=== PATIENT | female | born 1990 | race Caucasian/White ===

== ENCOUNTER 2017-05-27 15:49 | Emergency (ER) | payer BC ==
--- NOTE | 2017-05-27 19:37 | UC ---
Complaint Female HPI - HPI Summary HPI Summary: FOUR DAYS OF URGENCY FREQUENCY; LAST TWO DAYS HAS HAD DULL LOW BACK PAIN. NO FEVERS. NO ABDOMINAL PAIN. NO BLOOD IN URINE. NO VAGINAL DISCHARGE. NO NEW SEXUAL PARTNERS. - History Of Current Complaint Chief Complaint: UCGU Stated Complaint: POSS UTI Time Seen by Provider: 05/27/17 18:41 Hx Obtained From: Patient Hx Last Menstrual Period: 06/03/17 Onset/Duration: Gradual Onset, Lasting Days, Worse Since - TWO DAYS Timing: Intermittent, Lasting Days Severity Initially: Mild Severity Currently: Moderate Character: Dull, Burning Aggravating Factor(s): Urination Associated Signs And Symptoms: Positive: Back Pain - DULL MILD LOW BACK PAIN. Negative: Fever, Vaginal Bleeding/Discharge, Vaginal Discharge, Nausea, Vomiting (# Of Episodes =) - Allergies/Home Medications Allergies/Adverse Reactions: Allergies Allergy/AdvReac Type Severity Reaction Status Date / Time Neomycin Allergy Rash Verified 05/27/17 15:52 PMH/Surg Hx/FS Hx/Imm Hx Previously Healthy: Yes Other History Of: Negative For: HIV, Hepatitis B, Hepatitis C, Anticoagulant Therapy - Surgical History Surgical History: Yes Surgery Procedure, Year, and Place: wisdom teeth extraction - Family History Known Family History: Positive: Cardiac Disease, Hypertension Negative: Renal Disease - Social History Occupation: Employed Full-time Lives: With Family Alcohol Use: Occasionally Alcohol Amount: 4 drinks Substance Use Type: None Smoking Status (MU): Never Smoked Tobacco - Immunization History Most Recent Influenza Vaccination: does not regurlary receive Most Recent Tetanus Shot: utd Review of Systems Constitutional: Negative Skin: Negative Eyes: Negative ENT: Negative Respiratory: Negative Cardiovascular: Negative Gastrointestinal: Negative Genitourinary: Dysuria, Frequency, Urgency Motor: Negative Neurovascular: Negative Musculoskeletal: Negative Neurological: Negative Psychological: Negative All Other Systems Reviewed And Are Negative: Yes Physical Exam Triage Information Reviewed: Yes Appearance: Well-Appearing, No Pain Distress, Well-Nourished Vital Signs: Initial Vital Signs Temp 98.9 F 05/27/17 15:50 Pulse 81 05/27/17 15:50 Resp 16 05/27/17 15:50 BP 117/84 05/27/17 15:50 Pulse Ox 99 05/27/17 15:50 Vital Signs Reviewed: Yes Eye Exam: Normal ENT Exam: Normal Dental Exam: Normal Neck exam: Normal Respiratory Exam: Normal Respiratory: Positive: Chest non-tender, Lungs clear, Normal breath sounds Cardiovascular Exam: Normal Cardiovascular: Positive: RRR, No Murmur, Pulses Normal Abdominal Exam: Normal Abdomen Description: Positive: Nontender, No Organomegaly, Soft Musculoskeletal Exam: Normal Neurological Exam: Normal Psychological Exam: Normal Skin Exam: Normal Complaint Female Dx - Differential Dx/Diagnosis Differential Diagnosis/HQI/PQRI: Urinary Tract Infection Provider Diagnoses: URINARY TRACT INFECTION Discharge - Discharge Plan Condition: Stable Disposition: HOME Prescriptions: Phenazopyridine TAB* [Pyridium 100 mg TAB*] 100 mg PO TID #15 tab Sulfamethox/Trimethoprim DS* [Bactrim DS 800/160 TAB*] 1 tab PO BID #10 tab Patient Education Materials: Urinary Tract Infection in Women (ED) Referrals: [facility]FERR[facility] [Outside] No Primary Care Phys,NOPCP [Primary Care Provider] - Additional Instructions: PRIMARY CARE: There are four major types of clinical preventive care: immunizations, screening , behavioral counseling (sometimes referred to as lifestyle changes), and chemoprevention. All four apply throughout the life span. It is important to establish and to have access to a Primary Care Physician, not only for follow- up regrding acute and chronic problems, but also for preventative care. PLEASE SEEK EVALUATION AT THE EMERGENCY DEPARTMENT IF YOU DEVELOP FEVERS, SEVERE ABDOMINAL PAIN, OR ANY NEW OR CONCERNING SYMPTOMS DEVELOP DURING THE COURSE OF TREATMENT FOR THIS ILLNESS
[2017-05-27 19:45] VITALS: BP 112/69
== END 2017-05-27 19:35 | disposition home or self-care (01) ==
LOC: UCEAST 15:49
DX: N39.0 Urinary tract infection, site not specified (principal)
CPT/HCPCS: 81003; 84702; 87077; 87086; 99212; G0463

== ENCOUNTER 2017-06-03 10:35 | Emergency (ER) | payer BC ==
[2017-06-03 10:42] VITALS: BP 122/77
--- NOTE | 2017-06-03 12:23 | UC ---
Skin Complaint HPI - HPI Summary HPI Summary: full body itching rash began 1 day after finishing Bactrim for a UTI (that has resolved) - History of Current Complaint Chief Complaint: UCAllergicReaction Time Seen by Provider: 06/03/17 12:15 Stated Complaint: RASH FEVER Hx Obtained From: Patient Hx Last Menstrual Period: 05/04/17 ?: No Onset/Duration: Sudden Onset, Lasting Days - 1, Still Present Timing: Constant Onset Severity: Moderate Current Severity: Moderate Location: Diffuse Character: Redness Aggravating: Nothing Alleviating: Nothing Associated Signs & Symptoms: Positive: Rash Related History: Recent change in medication - Allergy/Home Medications Allergies/Adverse Reactions: Allergies Allergy/AdvReac Type Severity Reaction Status Date / Time Neomycin Allergy Rash Verified 05/27/17 15:52 Sulfamethoxazole Allergy Rash Verified 06/03/17 10:37 w/Trimethoprim [From Bactrim] Review of Systems Constitutional: Negative Skin: Rash - full body masular red blanching rash Eyes: Negative ENT: Negative Respiratory: Negative Cardiovascular: Negative Gastrointestinal: Negative Genitourinary: Negative Motor: Negative Neurovascular: Negative Musculoskeletal: Negative Neurological: Negative Psychological: Negative All Other Systems Reviewed And Are Negative: Yes PMH/Surg Hx/FS Hx/Imm Hx Previously Healthy: Yes Other History Of: Negative For: HIV, Hepatitis B, Hepatitis C, Anticoagulant Therapy - Surgical History Surgical History: Yes Surgery Procedure, Year, and Place: wisdom teeth extraction - Family History Known Family History: Positive: Cardiac Disease, Hypertension Negative: Renal Disease - Social History Occupation: Employed Full-time Lives: With Family Alcohol Use: Occasionally Alcohol Amount: 4 drinks Substance Use Type: None Smoking Status (MU): Never Smoked Tobacco - Immunization History Most Recent Influenza Vaccination: does not regurlary receive Most Recent Tetanus Shot: utd Physical Exam Triage Information Reviewed: Yes Appearance: Well-Appearing, No Pain Distress, Well-Nourished Vital Signs: Initial Vital Signs Temp 98.6 F 06/03/17 10:39 Pulse 84 06/03/17 10:39 Resp 16 06/03/17 10:39 BP 122/77 06/03/17 10:39 Pulse Ox 99 06/03/17 10:39 Vital Signs Reviewed: Yes Eye Exam: Normal Eyes: Positive: Conjunctiva Clear ENT Exam: Normal ENT: Positive: Normal ENT inspection, Hearing grossly normal. Negative: Nasal congestion, Nasal drainage, Trismus, Muffled/hoarse voice Dental Exam: Normal Neck exam: Normal Neck: Positive: Supple, Nontender Respiratory Exam: Normal Respiratory: Positive: Chest non-tender, Lungs clear, No respiratory distress, No accessory muscle use Cardiovascular Exam: Normal Cardiovascular: Positive: RRR, No Murmur, Pulses Normal, Brisk Capillary Refill Musculoskeletal Exam: Normal Musculoskeletal: Positive: Strength Intact, ROM Intact, No Edema Neurological Exam: Normal Neurological: Positive: Alert, Muscle Tone Normal Psychological Exam: Normal Skin Exam: Normal Skin: Positive: rashes - diffuse mobiliform rash Course/Dx - Course Course Of Treatment: benadryl, prednisone, avoid all sulfa based medications follow with pcp prn - Differential Diagnoses - Skin Complaint Differential Diagnoses: Allergic Reaction, Anaphylaxis, Angioedema, Cellulitis - Diagnoses Provider Diagnoses: Allergic reaction to BActrim Discharge - Discharge Plan Condition: Stable Disposition: HOME Prescriptions: predniSONE TAB* [Deltasone TAB*] 50 mg PO DAILY #5 tab Patient Education Materials: Tick Bite (ED), Acute Rash (ED), Antibiotic Medication Allergy (ED) Referrals: [facility] [facility] [Outside] - 5 Days
== END 2017-06-03 12:36 | disposition home or self-care (01) ==
LOC: UCEAST 10:35
DX: L27.0 Generalized skin eruption due to drugs and medicaments taken internally (principal); T37.0X5A Adverse effect of sulfonamides, initial encounter; Y92.9 Unspecified place or not applicable
CPT/HCPCS: 86618; 99211; G0463

== ENCOUNTER 2018-01-27 15:36 | Emergency (ER) | payer BC ==
[2018-01-27 16:12] VITALS: BP 118/77
--- NOTE | 2018-01-27 21:33 | UC ---
Rakan Boudreaux Nikita, scribed for Nitin Zee MD on 01/27/18 at 1622 . Complaint Female HPI - HPI Summary HPI Summary: This patient is a 27 year old F presenting to [facility] with a chief complaint of UTI sx since 3 days ago. The CC is described as urinary frequency, urgency, and burning. The patient rates the pain 0/10 in severity. Symptoms aggravated by nothing. Symptoms alleviated by nothing. Patient reports hematuria (today). Patient reports that her sx are similar to her usual UTI. - History Of Current Complaint Chief Complaint: UCGU Stated Complaint: POSS UTI Time Seen by Provider: 01/27/18 16:02 Hx Obtained From: Patient Hx Last Menstrual Period: 3 wks ago Onset/Duration: Sudden Onset, Lasting Days, Still Present Timing: Constant Severity Currently: None Pain Intensity: 0 Pain Scale Used: 0-10 Numeric Character: Burning Aggravating Factor(s): Nothing Alleviating Factor(s): Nothing - Allergies/Home Medications Allergies/Adverse Reactions: Allergies Allergy/AdvReac Type Severity Reaction Status Date / Time neomycin Allergy Rash Verified 01/27/18 16:13 sulfamethoxazole Allergy Rash Verified 01/27/18 16:13 [From Bactrim] trimethoprim [From Bactrim] Allergy Rash Verified 01/27/18 16:13 PMH/Surg Hx/FS Hx/Imm Hx Endocrine History: Other Other Endocrine History: No DM Cardiovascular History: Other Other Cardiovascular History: No CAD, HTN Respiratory History: Asthma GI/ History: Other Other GI/ History: UTI Other History Of: Negative For: HIV, Hepatitis B, Hepatitis C, Anticoagulant Therapy - Surgical History Surgical History: Yes Surgery Procedure, Year, and Place: wisdom teeth extraction - Family History Known Family History: Positive: Cardiac Disease, Hypertension Negative: Renal Disease - Social History Alcohol Use: Occasionally Alcohol Amount: 4 drinks Substance Use Type: None Smoking Status (MU): Never Smoked Tobacco - Immunization History Most Recent Influenza Vaccination: does not regurlary receive Most Recent Tetanus Shot: utd Review of Systems Genitourinary: Hematuria, Frequency, Urgency, Vaginal/Penile Burning All Other Systems Reviewed And Are Negative: Yes Physical Exam - Summary Physical Exam Summary: VITAL SIGNS: Reviewed. GENERAL: ~Patient is a well-developed and nourished FEMALE who is lying comfortable in the stretcher. ~Patient is not in any acute respiratory distress. HEAD AND FACE: Normocephalic EYES: PERRLA, EOMI x 2. EARS: Hearing grossly intact. MOUTH: Oropharynx within normal limits. NECK: Supple, trachea is midline, no adenopathy, no JVD, no carotid bruit. CHEST: Symmetric, no tenderness at palpation LUNGS: Clear to auscultation bilaterally. No wheezing or crackles. CVS: Regular rate and rhythm, S1 and S2 present, no murmurs or gallops appreciated. ABDOMEN: Soft, non-tender. Bowel sounds are normal. No abdominal abnormal pulsations. EXTREMITIES: Full ROM in all major joints, no edema, no cyanosis or clubbing. NEURO: Alert and oriented x 3. No acute neurological deficits. Speech is normal and follows commands. SKIN: Dry and warm Triage Information Reviewed: Yes Vital Signs: Initial Vital Signs Temp 98.0 F 01/27/18 16:10 Pulse 69 01/27/18 16:10 Resp 12 01/27/18 16:10 BP 118/77 01/27/18 16:10 Pulse Ox 100 01/27/18 16:10 Complaint Female Dx - Course Course Of Treatment: I discussed all the findings and test results with the patient. Patient was instructed to return to the urgent care or go to ER immediately if any of the symptoms return or worsens. Plan of care was discussed with the patient, and patient understands and agrees. All questions were answered to patient satisfaction. There were no further complaints or concerns. - Differential Dx/Diagnosis Differential Diagnosis/HQI/PQRI: Urinary Tract Infection Provider Diagnoses: UTI Discharge - Sign-Out/Discharge Documenting (check all that apply): Discharge - Discharge Plan Condition: Stable Disposition: HOME Prescriptions: Ciprofloxacin TAB* [Cipro 500 MG TAB*] 500 mg PO BID #6 tab Phenazopyridine TAB* [Pyridium 100 mg TAB*] 1 tab PO ONCE #12 tab Patient Education Materials: Urinary Tract Infection in Women (ED) Referrals: [facility] [place] [facility] [Outside] No Primary Care Phys,NOPCP [Primary Care Provider] - Additional Instructions: Take medications as instructed Increase your fluid intake Return to the UC if symptoms worsen The documentation as recorded by the Rakan levy Nikita accurately reflects the service I personally performed and the decisions made by , Nitin Zee MD.
--- NOTE | 2018-01-29 17:14 | UC ---
- Progress Note Progress Note: call patient and assure sx have resolved if not please get re-checked as urine did not culture infection---may stop cipro. Discharge - Sign-Out/Discharge Documenting (check all that apply): Post-Discharge Follow Up - Discharge Plan Condition: Stable Disposition: HOME Prescriptions: Ciprofloxacin TAB* [Cipro 500 MG TAB*] 500 mg PO BID #6 tab Phenazopyridine TAB* [Pyridium 100 mg TAB*] 1 tab PO ONCE #12 tab Patient Education Materials: Urinary Tract Infection in Women (ED) Referrals: [facility] [place] [facility] [Outside] No Primary Care Phys,NOPCP [Primary Care Provider] - Additional Instructions: Take medications as instructed Increase your fluid intake Return to the UC if symptoms worsen - Billing Disposition and Condition Condition: STABLE Disposition: HOME
== END 2018-01-27 16:45 | disposition home or self-care (01) ==
LOC: UCEAST 15:36
DX: N39.0 Urinary tract infection, site not specified (principal); R31.9 Hematuria, unspecified; Z32.02 Encounter for pregnancy test, result negative; J45.909 Unspecified asthma, uncomplicated; Z87.440 Personal history of urinary (tract) infections; Z88.1 Allergy status to other antibiotic agents; Z88.2 Allergy status to sulfonamides
CPT/HCPCS: 81003; 84702; 87086; 99212; G0463

== ENCOUNTER 2018-06-04 09:07 | Emergency (ER) | payer BC ==
[2018-06-04 09:50] VITALS: BP 103/62
--- NOTE | 2018-06-04 10:19 | UC ---
Complaint Female HPI - HPI Summary HPI Summary: 27 yo female c/o one day urinary freq / urgency / dysuria. Some lower mid pelvic discomfort, radiating to both flanks. Without direct hematuria, although has noted it in the past with urine infection. no fever / chills. No GI issues. Hx frequent uiti's, most recent symptoms in the last 1- months but resolved without abx. No vaginal c/os. - History Of Current Complaint Chief Complaint: UCGU Stated Complaint: UTI Time Seen by Provider: 06/04/18 10:17 Hx Obtained From: Patient Hx Last Menstrual Period: 05/08/18 ?: No Pain Intensity: 2 - Allergies/Home Medications Allergies/Adverse Reactions: Allergies Allergy/AdvReac Type Severity Reaction Status Date / Time neomycin Allergy Rash Verified 06/04/18 09:50 sulfamethoxazole Allergy Rash Verified 06/04/18 09:50 [From Bactrim] trimethoprim [From Bactrim] Allergy Rash Verified 06/04/18 09:50 Home Medications: Home Medications Acetaminophen [Acetaminophen Extra Strength] 500 mg PO ONCE PRN 06/04/18 [ History Confirmed 06/04/18] PMH/Surg Hx/FS Hx/Imm Hx Previously Healthy: Yes Other History Of: Negative For: HIV, Hepatitis B, Hepatitis C, Anticoagulant Therapy - Surgical History Surgical History: None Surgery Procedure, Year, and Place: wisdom teeth extraction - Family History Known Family History: Positive: Cardiac Disease, Hypertension Negative: Renal Disease - Social History Alcohol Use: Weekly Alcohol Amount: 4 drinks Substance Use Type: None Smoking Status (MU): Never Smoked Tobacco - Immunization History Most Recent Influenza Vaccination: does not regurlary receive Most Recent Tetanus Shot: utd Review of Systems Constitutional: Negative Skin: Negative Eyes: Negative ENT: Negative Respiratory: Negative Cardiovascular: Negative Gastrointestinal: Other - see hpi Genitourinary: Other Motor: Negative Neurovascular: Negative Musculoskeletal: Negative Neurological: Negative Psychological: Negative Is Patient Immunocompromised?: No All Other Systems Reviewed And Are Negative: Yes Physical Exam Triage Information Reviewed: Yes Appearance: Well-Appearing, Well-Nourished Vital Signs: Initial Vital Signs Temp 98 F 06/04/18 09:45 Pulse 62 06/04/18 09:45 Resp 14 06/04/18 09:45 BP 103/62 06/04/18 09:45 Pulse Ox 97 06/04/18 09:45 Vital Signs Reviewed: Yes Eye Exam: Normal ENT Exam: Normal - grossly normal Neck: Positive: Supple Respiratory Exam: Normal Respiratory: Positive: Chest non-tender, Lungs clear, Normal breath sounds, No respiratory distress, No accessory muscle use Cardiovascular Exam: Normal Cardiovascular: Positive: RRR, Pulses Normal Abdominal Exam: Other - subj lower abd discomfort, with subj radiation to flank. Without point cvat, but reports that pressure feels different than usual. Abd o/w soft, nd. Musculoskeletal Exam: Normal - gait steady moves x 4 ext's Neurological Exam: Normal - grossly nonfocal, neuro not performed Psychological Exam: Normal - conversing easily and appropriately Skin Exam: Normal - no visible or reported rash Complaint Female Dx - Course Course Of Treatment: Reviewed urine dip / ucg with pt. Reviewed coa / tx plan. Reviewed the need for urine recheck re tr hematuria. Questions as posed answered to the best of my ability. - Differential Dx/Diagnosis Provider Diagnoses: Cystitis Discharge - Sign-Out/Discharge Documenting (check all that apply): Patient Departure - Discharge Plan Condition: Stable Disposition: HOME Prescriptions: Ciprofloxacin HCl [Cipro 500 MG TAB] 500 mg PO BID #14 tab Fluconazole [Diflucan 150 MG (NF)] 150 mg PO DAILY #2 tab Patient Education Materials: Urinary Tract Infection in Women (DC), Hematuria ( ED) Referrals: [facility] [place] [facility] [Outside] No Primary Care Phys,NOPCP [Primary Care Provider] - Additional Instructions: Please follow up with a primary care physician as soon as you are able. Seek medical attention for worse or new problems in the meantime. Drink plenty of fluids while taking antibiotic. Avoid prolonged sun exposure while taking antibiotic. Urine culture has been sent. Consider daily probiotic. - Billing Disposition and Condition Condition: STABLE Disposition: Home
== END 2018-06-04 10:45 | disposition home or self-care (01) ==
LOC: UCEAST 09:07
DX: N30.90 Cystitis, unspecified without hematuria (principal); Z88.1 Allergy status to other antibiotic agents; Z88.2 Allergy status to sulfonamides
CPT/HCPCS: 81003; 84702; 87077; 87086; 87186; 99211; G0463